=== PATIENT | male | born 1975 | race Caucasian/White ===

== ENCOUNTER → 2022-03-03 | Outpatient (CLI) | payer OTHER ==
[~2022-03-03] MED LIST: ACET325; ACET325 PO; ACET500 PO; Bactrim 400-801 EACH PO; Bactrim Ds Tab1 EACH PO; CLON2; DIVA500EC; DIVA500ER PO; ESCI20; ESCI20 PO; FENO67 PO; HYDACE5 PO; IBUP800 PO; LEVO750 PO; NIAC500ER PO; OMEG1CAP30; OMEG1CAP30 PO; PENVK500 PO; QUET100; QUET100 PO; QUET200 PO; QUET300 PO; SENN187; SENN187 PO; Triple Antibio1 EACH TP
== END | disposition home or self-care (01) ==
LOC: LAB SHORT 10:25 → LAB 10:25
DX: E08.42 Diabetes mellitus due to underlying condition with diabetic polyneuropathy (principal)
CPT/HCPCS: 82043

== ENCOUNTER → 2022-03-23 | Outpatient (CLI) | payer OTHER | LOC: LAB SHORT 11:50 → LAB 11:50 | DX: L03.113 Cellulitis of right upper limb (principal) | CPT/HCPCS: 87070; 87077; 87147; 87186; 87205 ==

== ENCOUNTER → 2022-07-15 | Outpatient (CLI) | payer OTHER | END | disposition home or self-care (01) | LOC: LAB SHORT 10:40 → LAB 10:40 | DX: S81.802A Unspecified open wound, left lower leg, initial encounter (principal); L08.9 Local infection of the skin and subcutaneous tissue, unspecified | CPT/HCPCS: 87070; 87075; 87077; 87147; 87186; 87205 ==

== ENCOUNTER → 2023-03-23 | Outpatient (CLI) | payer OTHER | END | disposition home or self-care (01) | LOC: LAB 11:07 → LAB SHORT 11:07 | DX: L03.111 Cellulitis of right axilla (principal) | CPT/HCPCS: 87070; 87075; 87077; 87147; 87186; 87205 ==

== ENCOUNTER → 2025-04-04 | Outpatient (CLI) | payer OTHER ==
[2025-04-04 20:27] LABS: Creatinine, Urine Random 24.90 mg/dL (27.00-270.00); Microalb/Creat Ratio UR, Rand Unable to Calculate mg/g (0.000-30.000); Microalbumin, Random Urine <5.000 mg/L (0.000-20.000)
== END | disposition home or self-care (01) ==
LOC: LAB SHORT 15:46 → LAB 15:46
PROVIDERS: Nurse Practitioner Family
DX: E11.42 Type 2 diabetes mellitus with diabetic polyneuropathy (principal); E78.1 Pure hyperglyceridemia
CPT/HCPCS: 82043; 82570